=== PATIENT | male | born 1960 | race Caucasian/White ===

== ENCOUNTER → 2022-09-19 06:59 | Outpatient (CLI) | payer OTHER, SELFPAY ==
[2022-09-19 08:37] LABS: Hematocrit 54.4 % (41-53); Hemoglobin 17.9 g/dL (13.5-17.5); Mean Corpuscular Hemoglobin 31.4 PG (26-34); Mean Corpuscular Volume 95.2 fL (80-100); Platelet Count 248 X10^3/uL (150-400); Red Blood Cell Count 5.71 X10^6/uL (4.5-5.9); Red Cell Distribution Width 14.8 % (11.6-14.8); White Blood Cell Count 7.8 X10^3/uL (4.5-11.0)
[2022-09-19 08:59] LABS: Alanine Aminotransferase 38 IU/L (<50); Albumin 4.4 g/dL (3.5-5.0); Albumin Globulin Ratio 1.3 (1.0-2.8); Alkaline Phosphatase 73 U/L (38-126); Aspartate Aminotransferase 35 IU/L (17-59); BUN Creatinine Ratio 13.3 (6-22); Bilirubin Total 0.9 mg/dL (0.2-1.3); Blood Urea Nitrogen 12 mg/dL (9-20); Calcium 9.3 mg/dL (8.4-10.2); Carbon Dioxide 27 mmol/L (22-32); Chloride 103 mmol/L (98-107); Cholesterol 271 mg/dL (140-199); Estimated Glomerular Filt Rate > 60 mL/min (>60); Globulin 3.4 g/dL (1.7-4.1); Glucose 103 mg/dL (80-110); HDL Cholesterol 55 mg/dL (40-60); HEMOLYSIS < 15 (0-50); LDL Cholesterol Calculated 186 mg/dL (<100); Potassium 3.8 mmol/L (3.4-5.1); Sodium 142 mmol/L (137-145); Total Protein 7.8 g/dL (6.3-8.2); Triglycerides 151 mg/dL (35-150)
[2022-09-19 09:04] LABS: Hemoglobin A1C% w Est Avg Glu 5.9 % (4.0-6.0)
== END ==
PROVIDERS: PCP Family Medicine; Referring Provider Family Medicine; Visit Provider Family Medicine
DX: E66.9 Obesity, unspecified (principal); E78.2 Mixed hyperlipidemia; M17.2 Bilateral post-traumatic osteoarthritis of knee; R06.09 Other forms of dyspnea; R73.03 Prediabetes
CPT/HCPCS: 36415; 80053; 80061; 82306; 83036; 85027

== ENCOUNTER → 2022-10-05 18:36 | Outpatient (CLI) | payer OTHER, SELFPAY ==
--- NOTE | 2022-10-05 18:38 | DI.MRI.S_ITS ---
PROCEDURE: MR KNEE LT WO CON INDICATIONS: bilateral knee pain TECHNIQUE: Noncontrast sagittal PD fast spin echo and T2 fast spin echo with fat saturation, sagittal 3-D FLASH with fat saturation; coronal T1 spin echo and PD fast spin echo with fat saturation, and axial PD fast spin echo with fat saturation through the knee. COMPARISON: [facility], MR, MR KNEE RT WO CON, 10/05/2022, 19:08. [facility], RG, XR KNEES BILATERAL, 01/11/2006, 9:03. [facility], CR, XR KNEE LT 3V, 10/05/2022, 18:43. FINDINGS: Image quality: Excellent. Anterior Cruciate Ligament: Intact. Posterior Cruciate Ligament: Intact. Medial Collateral Ligament: Remote prior low-grade sprain of the proximal medial collateral ligament. Lateral Collateral Ligament: Remote prior low-grade sprain of the proximal lateral collateral ligament. Medial Meniscus: Complex degenerative tearing of the medial meniscus with extrusion of the meniscal body beyond the femorotibial joint line. Lateral Meniscus: Horizontal oblique tearing of the body and anterior horn of the lateral meniscus extending to the inner third of the tibial articular surface. A lobular parameniscal cyst is seen along the anterior nonarticular margin measuring 2.2 x 1.6 x 1.7 cm extending into the infrapatellar fat pad. Medial and Lateral Tendons: The semimembranosus tendon insertions and meniscocapsular junction appear intact. Visualized portions of the pes anserinus tendons appear normal. No abnormal bursal fluid. The long and short heads of the biceps femoris tendon appear intact. The popliteus tendon appears intact. No signs of posterolateral corner injury. Iliotibial band appears normal. Anterior Structures: The quadriceps and patellar tendons appear intact. No patellar subluxation. No femoral trochlear dysplasia or ventral trochlear prominence. No edema in the infrapatellar fat pad. Bones: No acute trabecular bone injury or fracture. Cystic changes within the posterior aspect of the medial tibial plateau are most likely related to chronic traction changes versus overlying cartilage loss or chronic erosions. Medial Femorotibial Cartilage: There is a large area of full-thickness cartilage loss throughout the weight-bearing portion of the medial femorotibial compartment with subchondral edema and subchondral cystic changes as well as marginal osteophyte formation. Lateral Femorotibial Cartilage: Deep cartilage fissuring is seen in the central to posterior aspect of the lateral femorotibial compartment. There is focal full-thickness cartilage loss and subchondral osteophyte formation at the anterior weight-bearing portion of the lateral femoral condyle. Marginal osteophytes and subchondral edema are present. Patellofemoral Cartilage: An area of full-thickness cartilage loss is seen at the lateral femoral trochlea and there is grade 2-3 cartilage irregularity at the lateral patellar facet as well as at the trochlear groove/medial femoral trochlea. Soft Tissues: Moderate to large joint effusion with moderate lipoma arborescens. A nonedematous intra-articular loose body is seen posterior to the medial tibial plateau measuring 19 mm. Multiple small hypointense intra-articular loose bodies are seen posterior to the intercondylar notch. Trace medial popliteal cyst. The musculature surrounding the knee is normal in bulk. IMPRESSION: 1. Tricompartmental osteoarthrosis including a large area of full-thickness cartilage loss in the medial femorotibial compartment with subchondral edema and subchondral cystic changes. Small areas of full-thickness cartilage loss are seen in the anterior and lateral compartments. Tricompartmental marginal osteophytes are noted. 2. Complex degenerative tearing and maceration of the medial meniscus with extrusion of the meniscal body. 3. Horizontal oblique tearing of the body and anterior horn of the lateral meniscus extending to the inner third of the tibial articular surface. Lobular parameniscal cyst anterior to the lateral meniscus measures up to 2.2 cm and extends into the infrapatellar fat pad. 4. Chronic low-grade sprains of the proximal medial and lateral collateral ligaments. 5. Moderate to large joint effusion with moderate lipoma arborescens. Multiple intra-articular loose bodies are present. Approved by: Uli Mclaughlin M.D. on 10/08/2022 at 8:40
--- NOTE | 2022-10-05 18:38 | DI.RAD.S_ITS ---
PROCEDURE: XR KNEE LT 3V INDICATIONS: bilateral knee pain TECHNIQUE: 3 views of the knee were acquired. COMPARISON: None. FINDINGS: Bones: No fractures or dislocations. There is moderate to severe joint space narrowing in the medial compartment with subchondral sclerosis and osteophytosis. Minimal lateral tilt of the patella demonstrated with mild narrowing in the patellofemoral compartment laterally. There is mild patellar osteophytosis. No suspicious bony lesions. Soft tissues: There is a small to moderate joint effusion. Chondrocalcinosis is demonstrated. IMPRESSION: 1. Osteoarthritic changes of the knee including moderate to severe degeneration in the medial compartment. 2. Small to moderate joint effusion. 3. Chondrocalcinosis is nonspecific but may reflect CPPD arthropathy. Dictated by: Henrik Garcia M.D. on 10/06/2022 at 2:42 Approved by: Henrik Garcia M.D. on 10/06/2022 at 2:44
--- NOTE | 2022-10-05 18:38 | DI.RAD.S_ITS ---
PROCEDURE: XR KNEE RT 3V INDICATIONS: bilateral knee pain TECHNIQUE: 3 views of the knee were acquired. COMPARISON: [facility], , XR KNEES BILATERAL, 01/11/2006, 9:03. FINDINGS: Bones: No fractures or dislocations. There is moderate to severe joint space narrowing in the medial compartment with subchondral sclerosis and osteophytosis. Mild lateral tilt and shift of the patella is demonstrated with mild to moderate narrowing in the patellofemoral compartment laterally. Patellar osteophytosis is also demonstrated. No suspicious bony lesions. Soft tissues: There is a moderate joint effusion. There is chondrocalcinosis. IMPRESSION: 1. Osteoarthritic changes of the knee including moderate to severe degeneration in the medial compartment. 2. Moderate joint effusion. 3. Nonspecific chondrocalcinosis may reflect CPPD arthropathy. Dictated by: Henrik Garcia M.D. on 10/06/2022 at 2:44 Approved by: Henrik Garcia M.D. on 10/06/2022 at 2:45
--- NOTE | 2022-10-05 18:38 | DI.MRI.S_ITS ---
PROCEDURE: MR KNEE RT WO CON INDICATIONS: bilateral knee pain TECHNIQUE: Noncontrast sagittal PD fast spin echo and T2 fast spin echo with fat saturation, sagittal 3-D FLASH with fat saturation; coronal T1 spin echo and PD fast spin echo with fat saturation, and axial PD fast spin echo with fat saturation through the knee. COMPARISON: [facility], RG, XR KNEES BILATERAL, 01/11/2006, 9:03. [facility], CR, XR KNEE RT 3V, 10/05/2022, 18:43. FINDINGS: Image quality: Excellent. Anterior Cruciate Ligament: The anterior cruciate ligament is not visualized and is most likely chronically torn. Posterior Cruciate Ligament: Intact. Medial Collateral Ligament: Mild thinning and intermediate signal intensity within the proximal medial collateral ligament is most likely secondary to a remote prior moderate grade sprain. Lateral Collateral Ligament: Intact. Medial Meniscus: There is diffuse degenerative tearing and maceration of the medial meniscus with scant residual meniscal tissue visualized. An anterior parameniscal cyst measures approximately 10 x 10 x 11 mm. Lateral Meniscus: There is complex tearing of the lateral meniscus including a vertical longitudinal component at the anterior horn and anterior root attachment as well as oblique tearing at the posterior horn. Findings most likely degenerative in nature. Medial and Lateral Tendons: The semimembranosus tendon insertions and meniscocapsular junction appear intact. Visualized portions of the pes anserinus tendons appear normal. No abnormal bursal fluid. The long and short heads of the biceps femoris tendon appear intact. The popliteus tendon appears intact. No signs of posterolateral corner injury. Iliotibial band appears normal. Anterior Structures: The quadriceps and patellar tendons appear intact. No patellar subluxation. No femoral trochlear dysplasia or ventral trochlear prominence. No edema in the infrapatellar fat pad. Bones: Prominent cystic changes are seen in the posterior portion of the central tibial plateau, which may be secondary to prominent chronic traction cystic changes versus intraosseous ganglion or chronic erosion. Cystic changes are also seen within the proximal fibula. Medial Femorotibial Cartilage: Diffuse full-thickness cartilage loss throughout the weight-bearing portion of the medial femorotibial compartment with subchondral edema, subchondral cystic changes, and remodeling of the articular surfaces. Bulky marginal osteophytes are present. Lateral Femorotibial Cartilage: There is deep cartilage fissuring in the central portion of the lateral tibial plateau. Full-thickness cartilage loss is seen at the posterior aspect of the lateral tibial plateau with subchondral osteophyte formation. There is focal high-grade cartilage loss at the adjacent posterior weight-bearing portion of the lateral femoral condyle. Moderately-sized marginal osteophytes are present. Patellofemoral Cartilage: Full-thickness cartilage loss is seen at the lateral patellar facet as well as the lateral femoral trochlea. There is full-thickness cartilage loss and subchondral osteophyte formation at the trochlear groove and medial femoral trochlea. Marginal osteophytes are present. Soft Tissues: There is a large joint effusion with moderate lipoma arborescens. A nonedematous ossified loose body is seen anterior to the lateral tibial plateau measuring 12 x 8 x 14 mm. Additional 14 mm ossified nonedematous loose body is seen posterior to the intercondylar notch. Additional smaller loose bodies are present about the knee. Trace medial popliteal cyst. The musculature surrounding the knee is normal in bulk. IMPRESSION: 1. Severe tricompartmental osteoarthrosis including large areas of full-thickness cartilage loss in the medial and anterior compartments and focal areas of full-thickness cartilage loss in the lateral compartment with tricompartmental marginal osteophytes. 2. Severe chronic degenerative tearing and maceration of the medial meniscus. 3. Complex degenerative tearing of the lateral meniscus. 4. Chronic complete tearing of the anterior cruciate ligament. 5. Remote prior grade 2 sprain of the proximal medial collateral ligament. 6. Large joint effusion with moderate lipoma arborescens and multiple ossified intra-articular loose bodies. Approved by: Uli Mclaughlin M.D. on 10/08/2022 at 8:24
== END ==
PROVIDERS: Family Provider Family Medicine; PCP Family Medicine; Referring Provider Family Medicine; Visit Provider Family Medicine
DX: M17.2 Bilateral post-traumatic osteoarthritis of knee (principal); M23.232 Derangement of other medial meniscus due to old tear or injury, left knee; M23.231 Derangement of other medial meniscus due to old tear or injury, right knee; M23.261 Derangement of other lateral meniscus due to old tear or injury, right knee; M23.242 Derangement of anterior horn of lateral meniscus due to old tear or injury, left knee; S83.511A Sprain of anterior cruciate ligament of right knee, initial encounter; S83.411A Sprain of medial collateral ligament of right knee, initial encounter; S83.412A Sprain of medial collateral ligament of left knee, initial encounter; S83.422A Sprain of lateral collateral ligament of left knee, initial encounter; M25.462 Effusion, left knee; M25.461 Effusion, right knee; M11.262 Other chondrocalcinosis, left knee; M11.261 Other chondrocalcinosis, right knee
CPT/HCPCS: 73562; 73721

== ENCOUNTER → 2022-10-18 14:42 | Outpatient (CLI) | payer OTHER, SELFPAY ==
--- NOTE | 2022-10-18 14:43 | DI.US.S_ITS ---
PROCEDURE: US SCROTUM INDICATIONS: LUMP IN RIGHT TESTICLE TECHNIQUE: Real-time scanning was performed of the scrotum and testicles, with image documentation. Color and pulse Doppler interrogation was performed of both testicles. COMPARISON: None. FINDINGS: Right: Testicle is normal in size at 5.2 x 2.5 x 4.4 cm, and homogenous in echotexture. There is a moderate to large size right hydrocele with numerous punctate echogenic reflectors and several thin septations. A unilocular 1.6 cm right epididymal head cyst is noted. Epididymis is otherwise normal. No varicocele. Overlying scrotal skin is normal in thickness. Left: Testicle is normal in size at 5.4 x 2.9 x 4.0 cm, and homogeneous in echotexture. Small to moderate left hydrocele with trace debris. 1.0 cm epididymal head cyst and a few other tiny epididymal cysts are present. Normal vascularity. Overlying scrotal skin is normal in thickness. Doppler: Color and pulse Doppler demonstrate normal and symmetric arterial flow in both testicles. IMPRESSION: 1. Prominent right-sided, debris containing hydrocele versus spermatocele. Several septations may contribute to feeling of nodularity. 2. Bilateral epididymal head cysts. 3. Normal appearance to both testicles. Dictated by: Jacey Gomez M.D. on 10/19/2022 at 11:15 Approved by: Jacey Gomez M.D. on 10/19/2022 at 11:23
== END ==
PROVIDERS: Family Provider Family Medicine; PCP Family Medicine; Referring Provider Family Medicine; Visit Provider Family Medicine
DX: N50.89 Other specified disorders of the male genital organs (principal); N50.3 Cyst of epididymis
CPT/HCPCS: 76870

== ENCOUNTER 2022-10-23 12:55 | Day surgery (SDC) | payer OTHER, SELFPAY ==
--- NOTE | 2022-10-23 | PATH_ITS ---
[facility] Accession Number: [id number] No. of containers..01 Tissue . 01 Material submitted: . sigmoid colon - SIGMOID 30CM POLYP . 01 Diagnosis: Sigmoid Colon Polyp at 30 cm: Tubulovillous adenoma. Negative for high-grade dysplasia or malignancy. MRV 10/29/2022 1225 Local . 01 Electronically signed: . Jb Yang MD, PhD, Pathologist NPI- [id number] . 01 Gross description: . SIGMOID 30CM POLYP: Received in formalin is 1 fragment of duarte soft tissue measuring 0.9 x 0.9 x 0.9 cm. Specimen is sectioned and submitted in its entirety in 1 cassette. /KODAK 10/24/2022 1907 Local . 01 Pathologist provided ICD-10: D12.5 . 01 CPT . 404020 Specimen Comment: A courtesy copy of this report has been sent to [phone] Performed at: 01 [facility] [address] [place] [address] [address] [facility], [place], [place] [id number] MD Henrik Rothman MD Phone: [phone]
[2022-10-23 13:50] VITALS: BP 113/72; PULSE 82; RESP 16; TEMP 36.1; O2SAT 95; BMI 30.5
[2022-10-23] MEDS: LACTATED RINGERS 1,000 ML 200 ML IV (14:05)
--- NOTE | 2022-10-23 15:14 | PM.HP.1 ---
History of Present Illness History of Present Illness Date Patient Seen: 10/23/22 Time Patient Seen: 15:14 Chief complaint: SDC Narrative: The patient presents for colorectal screening. They have never had any previous examination for such. No personal or family history of colon cancer. On further history denies any recent gastrointestinal symptoms. No nausea, vomiting, abdominal pain, loss of appetite, unexplained weight loss, change in bowel habits, or blood per rectum. Patient History Medical History (Updated 10/22/22 @ 09:40 by Ced Hernadez DO) Cyst of epididymis determined by ultrasound Diaphoresis Elevated hemoglobin Flushing reaction Hydrocele in adult Surgical History (Updated 01/07/18 @ 05:20 by SANTOS Calderon) Status post knee surgery Family & Social History Family History (Updated 01/26/16 @ 00:00 by Nicole Up DO) Father Cancer Hypertension High cholesterol Stroke Grandmother Cancer Mother Age: 85 Hypertension High cholesterol Stroke Grandfather Stroke Social History: household members spouse Tobacco & Substance use: Smoking Status Former smoker alcohol intake current alcohol intake frequency a few times a week Substance Use Type marijuana Meds Home Medications and Allergies Home Medications Medication Instructions Recorded Confirmed Type Instaflex 1 tab PO 3XD 09/18/22 10/23/22 History aspirin 81 mg tablet,delayed 81 mg PO DAILY 09/18/22 10/23/22 History release (Christina Low Dose Aspirin) lisinopril 20 mg tablet 20 mg PO DAILY #90 tabs 09/18/22 10/23/22 Rx turmeric 2 tab-cap PO DAILY 09/18/22 10/23/22 History atorvastatin 40 mg tablet 40 mg PO BEDTIME #90 tabs 10/01/22 10/23/22 Rx Allergies Allergy/AdvReac Type Severity Reaction Status Date / Time No Known Drug Allergies Allergy Verified 10/23/22 14:01 Exam Vital Signs (past 8 hours): - 10/23/22 13:50 Temperature 97.0 F L Pulse Rate 82 Respiratory Rate 16 Blood Pressure 113/72 Pulse Oximetry 95 Oxygen Delivery Method Room Air Oxygen Delivery Method Room Air Narrative Exam Narrative: General adult male alert oriented no acute distress Assessment & Plan Assessment & Plan narrative: The patient requires colorectal screening and colonoscopy is recommended. Technical details were discussed. Risks, benefits, alternatives explained. Risks including but not limited to myocardial infarction, aspiration, bleeding, pain, missed lesion, incomplete examination, need for further radiographic studies, colonic perforation, and need for major abdominal surgery were discussed. All questions were answered to their satisfaction, and they are in agreement with this plan. Time Spent With Patient Critical Care time: I spent a total of [] minutes of critical care time on this patient's care today; this time is exclusive of procedural time.
--- NOTE | 2022-10-23 15:15 | P.OP.COLON_ITS ---
Operative Date/Time/Diagnoses Date of procedure: 10/23/22 Time of procedure: 15:15 Pre-op diagnosis: Colorectal screening Procedure & Clinicians Study performed: Colonoscopy Same procedure as scheduled: Yes Indications: Colorectal screening Surgeon: Roland Corrigan Procedure Notes Procedure in detail: The history and physical was performed/updated and the patient is ASA class is 2. The procedure was discussed in detail with the patient. Potential risks complications including infection, bleeding, missed diagnosis, perforation, need for surgery, and were explained. Their questions were answered and informed consent was obtained. Patient was brought to the procedure room and placed standard monitoring equipment. The patient's vital signs were monitored continuously throughout the entire procedure. Prior to starting time-out was performed. The patient was placed in the left lateral recumbent position. Procedural sedation was administered by anesthesia. Examination began with a thorough inspection of the perianal area there was no evidence of fissures, fistulae, external hemorrhoids or cutaneous malignancy. The colonoscopy scope was then placed into the anal canal and was advanced to the cecum, which was identified by the ileocecal valv e, the appendiceal orifice and the confluence of the taenia. The scope was then slowly withdrawn examining colon thoroughly in all directions, irrigating it of any residual stool. Within the sigmoid colon at 30 cm from the anal verge there was a 1 cm pedunculated polyp with a broad base. 3 mL of Annalisa ink was used to raise the polyp and marked boogie was placed below the level of the polyp. The p olyp was then removed with snare. Initially cold snare was used but it was not adequate to cut through the stocking was therefore changed to cautery. There were no other significant lesions within the colon. The patient tolerated the procedure well. They will be discharged once criteria are met. The prep was of good/excellent quality. The withdrawl time was 10minutes. Specimen(s): other (Sigmoid polyp) Complications: none Impression: Colonic polyp Post-procedure Recommendations: High fiber diet Plan for aftercare: Follow-up is dependent on pathology findings. Please hold aspirin for 3 days. Disposition: same day surgery
[2022-10-23 15:50] VITALS: BP 98/69; PULSE 87; RESP 14; TEMP 37; O2SAT 91
[2022-10-23 15:55] VITALS: BP 110/79; PULSE 92; RESP 16; TEMP 37; O2SAT 92
[2022-10-23 16:02] VITALS: BP 117/87; PULSE 76; RESP 16; TEMP 36.9; O2SAT 96
== END 2022-10-23 16:15 | disposition home or self-care (01) ==
PROVIDERS: Family Provider Family Medicine; PCP Family Medicine; Referring Provider Surgery; Visit Provider Surgery
PROC: 0DJD8ZZ Inspection of Lower Intestinal Tract, Via Natural or Artificial Opening Endoscopic (ICD-10-PCS; CPT 45378; principal; 2022-10-23 14:00)
DX: Z12.11 Encounter for screening for malignant neoplasm of colon (principal); D12.5 Benign neoplasm of sigmoid colon
CPT/HCPCS: 45385; 45381; J2704; J3010

== ENCOUNTER → 2022-11-29 09:36 | Outpatient (CLI) | payer OTHER, SELFPAY ==
[2022-11-29 11:14] LABS: Appearance Urine UA CLEAR; Bilirubin Urine UA NEGATIVE (NEGATIVE); Color Urine UA YELLOW; Glucose Urine UA NEGATIVE (Negative); Ketones Urine UA NEGATIVE (NEGATIVE); Leukocyte Esterase Urine UA NEGATIVE (NEGATIVE); Nitrite Urine UA NEGATIVE (Negative); Occult Blood Urine UA 2+ (Negative); Protein Urine UA NEGATIVE (Negative); Specific Gravity Urine UA 1.025 (1.000-1.035); Urobilinogen Urine UA 0.2 E.U./dL (0.2); pH Urine UA 5.5 (4.5-8.0)
[2022-11-29 11:19] LABS: Bacteria Urine None Seen; Culture Indicated Urine Cult Not Indicated; RBC Urine 1-5/HPF (0-5/HPF); WBC Urine None Seen (0-5/HPF)
[2022-11-29 11:20] LABS: Add Manual Diff / Slide Review NO; Basophils Absolute Auto 0 /uL (0-100); Basophils Percent Auto 0.5 % (0-2); Eosinophils Absolute Auto 300 /uL (0-450); Eosinophils Percent Auto 3.4 % (2-4); Hematocrit 48.1 % (41-53); Hemoglobin 16.5 g/dL (13.5-17.5); Lymphocytes Absolute Auto 2800 /uL (1100-4500); Lymphocytes Percent Auto 31.7 % (25-40); Mean Corpuscular HGB Conc 34.2 % (30-36); Mean Corpuscular Hemoglobin 31.7 PG (26-34); Mean Corpuscular Volume 92.5 fL (80-100); Monocytes Absolute Auto 800 /uL (0-900); Monocytes Percent Auto 8.9 % (3-14); Neutrophils Absolute Auto 5000 /uL (1500-7000); Neutrophils Percent Auto 55.5 % (50-75); Platelet Count 261 X10^3/uL (150-400); Red Cell Distribution Width 13.7 % (11.6-14.8); White Blood Cell Count 8.9 X10^3/uL (4.5-11.0)
[2022-11-29 11:29] LABS: Hemoglobin A1C% w Est Avg Glu 6.3 % (4.0-6.0)
[2022-11-29 12:00] LABS: BUN Creatinine Ratio 14.4 (6-22); Blood Urea Nitrogen 14 mg/dL (9-20); Calcium 9.8 mg/dL (8.4-10.2); Carbon Dioxide 27 mmol/L (22-32); Chloride 102 mmol/L (98-107); Estimated Glomerular Filt Rate > 60 mL/min (>60); Glucose 101 mg/dL (80-110); HEMOLYSIS < 15 (0-50); Potassium 4.3 mmol/L (3.4-5.1); Sodium 138 mmol/L (137-145)
== END ==
PROVIDERS: Family Provider Family Medicine; PCP Family Medicine; Referring Provider Orthopaedic Surgery; Visit Provider Orthopaedic Surgery
DX: Z01.818 Encounter for other preprocedural examination (principal); Z01.812 Encounter for preprocedural laboratory examination; R73.9 Hyperglycemia, unspecified; N39.0 Urinary tract infection, site not specified; N43.3 Hydrocele, unspecified; R31.21 Asymptomatic microscopic hematuria; N50.3 Cyst of epididymis; Z68.32 Body mass index [BMI] 32.0-32.9, adult; Z87.891 Personal history of nicotine dependence
CPT/HCPCS: 36415; 80048; 81001; 81002; 83036; 85025; 93005; 93010

== ENCOUNTER → 2022-12-07 11:04 | Outpatient (CLI) | payer OTHER, SELFPAY ==
--- NOTE | 2022-12-07 11:04 | DI.CT.S_ITS ---
PROCEDURE: CT ABDOMEN PELVIS WO/W CON INDICATIONS: Asymptomatic microscopic hematuria TECHNIQUE: Optional 5 mm thick noncontrast images acquired from the diaphragm to the symphysis pubis. After the administration of intravenous contrast, 5 mm thick images acquired from the diaphragm to the symphysis pubis after a 10-minute delay. 2 mm thick coronal and sagittal reformats were then performed of the kidneys and ureters. For radiation dose reduction, the following was used: automated exposure control, adjustment of mA and/or kV according to patient size. COMPARISON: None. FINDINGS: Image quality: Good Lower chest: Basal scarring/atelectasis. No hiatal hernia. Normal heart size. Solid organs: Possible hepatic steatosis. Gallbladder is under distended and unremarkable. No pathologic dilation of biliary tree or pancreatic duct. No splenomegaly. There is a splenic cyst. No adrenal nodules. No hydronephrosis. The Bosniak 1 and 2 renal lesions are present, for which no dedicated followup is necessary per 2019 proposed guidelines. No obstructing calcified stone. No ureter filling defect. Bladder is under distended, limiting evaluation. Vessels and lymph nodes: No abdominal aortic aneurysm. No pathologic adenopathy by size criteria. Bowel and peritoneum: No bowel obstruction. No abscess or ascites. Colonic diverticula. Suggestion of chronic wall thickening in the sigmoid colon. Body wall: Unremarkable Pelvis: Prostate is not well evaluated on this study. Small fat containing left inguinal hernia. Bones: There are degenerative changes. No acute or suspicious osseous finding. IMPRESSION: No upper tract disease identified to explain hematuria. Any lower tract disease could be better evaluated with cystoscopy. Mildly heterogeneous appearance of the prostate, not well evaluated on CT. Consider correlation with PSA and possible MRI if abnormal. Other incidental and nonacute findings as above. Dictated by: Mazin Richmond M.D. on 12/07/2022 at 13:12 Approved by: Mazin Richmond M.D. on 12/07/2022 at 13:17
== END ==
PROVIDERS: Family Provider Family Medicine; PCP Family Medicine; Referring Provider Urology; Visit Provider Urology
DX: R31.21 Asymptomatic microscopic hematuria (principal); K57.90 Diverticulosis of intestine, part unspecified, without perforation or abscess without bleeding; K40.90 Unilateral inguinal hernia, without obstruction or gangrene, not specified as recurrent; D73.4 Cyst of spleen
CPT/HCPCS: 74178; Q9967

== ENCOUNTER → 2023-02-07 07:02 | Outpatient (CLI) | payer OTHER, SELFPAY ==
[2023-02-07 08:44] LABS: BUN Creatinine Ratio 18.7 (6-22); Blood Urea Nitrogen 17 mg/dL (9-20); Calcium 9.4 mg/dL (8.4-10.2); Carbon Dioxide 26 mmol/L (22-32); Chloride 102 mmol/L (98-107); Estimated Glomerular Filt Rate > 60 mL/min (>60); Glucose 110 mg/dL (80-110); HEMOLYSIS 25 (0-50); Sodium 136 mmol/L (137-145)
[2023-02-07 09:12] LABS: Prostate Specific Antigen Scrn 1.44 ng/mL (0.1-4.0)
[2023-02-07 16:30] LABS: HIV 1 & 2 Ab/Ag 4th Gen Combo NEGATIVE (NEGATIVE); Hep C Virus Ab w/Reflex Quant NEGATIVE s/c (NEGATIVE)
[2023-02-08 06:44] LABS: Labcorp Hemoglobin (Hb) A1c 5.6 % (4.8-5.6)
== END ==
PROVIDERS: Family Provider Family Medicine; PCP Family Medicine; Referring Provider Family Medicine; Visit Provider Family Medicine
DX: E78.2 Mixed hyperlipidemia (principal); Z11.59 Encounter for screening for other viral diseases; Z11.4 Encounter for screening for human immunodeficiency virus [HIV]; E11.65 Type 2 diabetes mellitus with hyperglycemia; M17.2 Bilateral post-traumatic osteoarthritis of knee; E66.9 Obesity, unspecified; R06.09 Other forms of dyspnea
CPT/HCPCS: 36415; 80048; 83036; 86803; 87389; G0103

== ENCOUNTER 2023-02-11 06:44 | Day surgery (SDC) | payer OTHER, SELFPAY ==
[2023-02-06 10:16] VITALS: BMI 31.4
--- NOTE | 2023-02-11 | PATH_ITS ---
[facility] Accession Number: [id number] No. of containers..01 Tissue . 01 Material submitted: . SPERMATOCELE - SPERMATOCELE . 01 Diagnosis: Spermatocele, Excision: Consistent with spermatocele. [facility] 02/14/2023 1134 Local . 01 Electronically signed: . Randa Bear MD, Pathologist NPI- [id number] . 01 Gross description: . The specimen is received in formalin labeled with the patient's name, , and spermatocele consists of a thin, smooth-walled cystic structure measuring 4.7 x 2.5 x 1.1 cm with a pale duarte wrinkled external surface. A white suture is identified with no designation per the requisition, and the area adjacent to the suture is inked green while the remaining external surface is inked blue. Sectioning reveals the cyst to contain clear serous fluid. No excrescences are identified. The specimen is submitted entirely in cassettes A1-A2. ([id number]) /MRV 02/12/2023 1418 Local . 01 Pathologist provided ICD-10: R31.21, N50.3, N43.3 . 01 CPT . 422080 Specimen Comment: A courtesy copy of this report has been sent to [phone] Performed at: 01 [facility] [address] [place] [address] [address] [facility], [place], [place] [id number] MD Henrik Rothman MD Phone: [phone]
[2023-02-11 07:00] VITALS: BMI 30.9
[2023-02-11 07:04] VITALS: BP 125/80; PULSE 75; RESP 18; TEMP 36.1; O2SAT 97
[2023-02-11] MEDS: LACTATED RINGERS 1,000 ML 21 ML IV (07:11)
--- NOTE | 2023-02-11 07:39 | PM.PREOP ---
Pre-operative Note COVID-19 COVID-19 status: Not tested Criteria for continued procedure: Non-surgical alternatives not available or appropriate per current SOC Interval Note History & Physical reviewed/Exam performed by Physician: Yes Changes to H&P: No
[2023-02-11] MEDS: CEFAZOLIN 2 GM/100 ML PREMIX 100 ML IV (07:55)
--- NOTE | 2023-02-11 08:08 | SUR.OPER ---
Supine on padded OR bed, head on pillow, arms secured on padded arm boards at <90 degrees abduction, legs uncrossed, safety belt at thigh, tape over blanket over lower legs.
[2023-02-11] MEDS: BUPIVACAINE 0.25% (PF) VIAL 30 ML INJ (08:13)
[2023-02-11 09:03] VITALS: BP 135/91; PULSE 86; RESP 10; TEMP 36.3; O2SAT 96
--- NOTE | 2023-02-11 09:06 | PM.OP.1 ---
Procedure & Clinicians Procedure: Right spermatocelectomy with flexible cystoscopy and drainage of hydrocele Same procedure as scheduled: Yes Indications: This very pleasant gentleman presented with right hemiscrotal enlargement and was found to have perhaps a small hydrocele in a larger spermatocele. He also had asymptomatic microscopic hematuria and tobacco exposure. He presents for the above procedures Surgeon: José Miguel Jackson Click Yes if Unassisted: Yes Anesthesia Type: General Operative Notes Findings: At cystoscopy urethral meatus was normal. Urethra is normal along its length with normal mucosa. The sphincter as well coapted. The prostatic fossa showed moderate obstructive character with normal mucosa. Ureteral orifices in normal position with clear efflux. And the bladder mucosa was in a word normal. There were no mucosal lesions, papillary lesions, velvety or erythematous lesions. There was no evidence of fistula stone or other abnormality at flexible cystoscopy. At spermatocelectomy there was a small amount of yellow food and hydrocele sac which was drained. It was fairly insignificant the spermatocele had clear slightly milky fluid and there were no other abnormalities noted. Closure Type: primary Specimen(s): other (Spermatocele sac) Estimated Blood Loss (mL): 0 Blood products transfused: none Procedure in detail: Procedure in detail after informed consent was obtained, the patient was identified and brought to the operating room worries placed in a supine position of the table and anesthesia was induced and maintained. During an adequate level of anesthesia the patient was shaved, prepped, draped, prepared for flexible cystoscopy and right spermatocelectomy. Ensuring an adequate level of anesthesia after prepping, draping, preparation and time out flexible cystoscope was passed through the urethral prostate and into the bladder where cystoscopy was performed including a retroflex maneuver. The scope was then removed and a red rubber catheter was passed into the bladder and the bladder was drained. Patient then went on to spermatocelectomy right side. Marking the midline on the right side a transverse incision was made through the scrotal skin and the dissection carried down through the layers of the dartos. The testicle small hydrocele and spermatocele were delivered. A small opening was made with electrocautery and bluntly into the hydrocele sac and it was drained of its yellow fluid. The investing layers over the spermatocele were then dissected away. And the spermatocele was entered in the fluid mostly drained. It was a clear with the slightly milky color. The sac of the spermatocele was then dissected off of the investing tissues down to the neck and junction with the epididymis. This was then ligated with a 2-0 Vicryl and the sac sharply remove. The investing tissues were then reapproximated with a running 2-0 chromic. This was after ensuring hemostasis the opening in the hydrocele sac was then reapproximated with a running 2-0 chromic. Cord block was then performed with 0.25% plain Marcaine in the testicle returned to the scrotum. The dartos was reapproximated with a running 2-0 Vicryl. Skin edges were reapproximated with a interrupted vertical mattress of 2-0 chromic. The skin was then infiltrated with 0.25% plain Marcaine. Dressings were applied, the patient was awakened and taken to the postanesthesia care unit having tolerated the procedure well. There were no complications. After an appropriate recovery the patient will be discharge to home. The spermatocele sac was forwarded to pathology for pathologic examination. Complications: none Post-operative Condition: stable Disposition: PACU Plan for aftercare: Patient to follow up my office in approximately 10-14 days.
[2023-02-11 09:08] VITALS: BP 127/79; PULSE 75; RESP 12; O2SAT 94
[2023-02-11 09:14] VITALS: BP 122/86; PULSE 77; RESP 12; O2SAT 96
[2023-02-11 09:18] VITALS: BP 124/79; PULSE 62; RESP 17; TEMP 36.4; O2SAT 97
[2023-02-11 09:25] VITALS: BP 122/73; PULSE 72; RESP 17; O2SAT 98
--- NOTE | 2023-02-11 09:35 | SUR.PHASEII ---
DC home with family. Volunteer took out in . No pain, no N/V, all belongings with patient
== END 2023-02-11 09:39 | disposition home or self-care (01) ==
PROVIDERS: Family Provider Family Medicine; PCP Family Medicine; Referring Provider Urology; Visit Provider Urology
PROC: 0TJB8ZZ Inspection of Bladder, Via Natural or Artificial Opening Endoscopic (ICD-10-PCS; CPT 52000; principal; 2023-02-11 07:45)
PROC: (CPT 54840; 2023-02-11 07:45)
DX: N43.41 Spermatocele of epididymis, single (principal); N43.3 Hydrocele, unspecified
CPT/HCPCS: 54840; J0690; J1100; J1885; J2250; J2405; J2704; J3010

== ENCOUNTER → 2023-05-15 11:46 | Outpatient (CLI) | payer OTHER, SELFPAY ==
[2023-05-15 12:41] LABS: Add Manual Diff / Slide Review NO; Basophils Absolute Auto 100 /uL (0-100); Basophils Percent Auto 0.6 % (0-2); Eosinophils Absolute Auto 300 /uL (0-450); Eosinophils Percent Auto 2.8 % (2-4); Hematocrit 45.6 % (41-53); Hemoglobin 15.3 g/dL (13.5-17.5); Lymphocytes Absolute Auto 2900 /uL (1100-4500); Lymphocytes Percent Auto 31.1 % (25-40); Mean Corpuscular HGB Conc 33.6 % (30-36); Mean Corpuscular Hemoglobin 31.1 PG (26-34); Mean Corpuscular Volume 92.5 fL (80-100); Monocytes Absolute Auto 800 /uL (0-900); Monocytes Percent Auto 8.1 % (3-14); Neutrophils Absolute Auto 5500 /uL (1500-7000); Neutrophils Percent Auto 57.4 % (50-75); Platelet Count 266 X10^3/uL (150-400); Red Blood Cell Count 4.93 X10^6/uL (4.5-5.9); White Blood Cell Count 9.5 X10^3/uL (4.5-11.0)
[2023-05-15 13:10] LABS: BUN Creatinine Ratio 15.1 (6-22); Blood Urea Nitrogen 16 mg/dL (9-20); Carbon Dioxide 25 mmol/L (22-32); Chloride 102 mmol/L (98-107); Estimated Glomerular Filt Rate > 60 mL/min (>60); Glucose 94 mg/dL (80-110); HEMOLYSIS < 15 (0-50); Potassium 4.6 mmol/L (3.4-5.1); Sodium 136 mmol/L (137-145)
== END ==
PROVIDERS: Family Provider Family Medicine; PCP Family Medicine; Referring Provider Orthopaedic Surgery; Visit Provider Orthopaedic Surgery
DX: Z01.812 Encounter for preprocedural laboratory examination (principal)
CPT/HCPCS: 36415; 80048; 85025

== ENCOUNTER → 2023-10-24 07:19 | Outpatient (CLI) | payer OTHER, SELFPAY ==
[2023-10-24 08:15] LABS: Cholesterol 140 mg/dL (140-199); HDL Cholesterol 53 mg/dL (40-60); LDL Cholesterol Calculated 62 mg/dL (<100); Triglycerides 126 mg/dL (35-150)
== END ==
PROVIDERS: Family Provider Family Medicine; PCP Family Medicine; Referring Provider Family Medicine; Visit Provider Family Medicine
DX: E78.2 Mixed hyperlipidemia (principal)
CPT/HCPCS: 36415; 80061

== ENCOUNTER → 2024-06-29 09:31 | Outpatient (CLI) | payer OTHER, SELFPAY ==
[2024-06-29 10:24] LABS: Add Manual Diff / Slide Review NO; Basophils Absolute Auto 100 /uL (0-100); Eosinophils Absolute Auto 200 /uL (0-450); Eosinophils Percent Auto 2.3 % (2-4); Hematocrit 43.4 % (41-53); Hemoglobin 14.6 g/dL (13.5-17.5); Lymphocytes Absolute Auto 3500 /uL (1100-4500); Lymphocytes Percent Auto 33.3 % (25-40); Mean Corpuscular HGB Conc 33.7 % (30-36); Mean Corpuscular Hemoglobin 30.5 PG (26-34); Mean Corpuscular Volume 90.3 fL (80-100); Monocytes Absolute Auto 800 /uL (0-900); Monocytes Percent Auto 7.6 % (3-14); Neutrophils Absolute Auto 5800 /uL (1500-7000); Neutrophils Percent Auto 55.8 % (50-75); Platelet Count 430 X10^3/uL (150-400); Red Cell Distribution Width 13.8 % (11.6-14.8); White Blood Cell Count 10.5 X10^3/uL (4.5-11.0)
[2024-06-29 10:27] LABS: Hemoglobin A1C% w Est Avg Glu 5.8 % (4.0-6.0)
[2024-06-29 10:42] LABS: Alanine Aminotransferase 13 IU/L (<50); Albumin 4.4 g/dL (3.5-5.0); Albumin Globulin Ratio 1.4 (1.0-2.8); Alkaline Phosphatase 84 U/L (38-126); Aspartate Aminotransferase 19 IU/L (17-59); BUN Creatinine Ratio 16.3 (6-22); Bilirubin Total 0.4 mg/dL (0.2-1.3); Blood Urea Nitrogen 17 mg/dL (9-20); Calcium 10.1 mg/dL (8.4-10.2); Carbon Dioxide 25 mmol/L (22-32); Chloride 106 mmol/L (98-107); Cholesterol 167 mg/dL (140-199); Estimated Glomerular Filt Rate > 60 mL/min (>60); Globulin 3.1 g/dL (1.7-4.1); Glucose 92 mg/dL (80-110); HDL Cholesterol 52 mg/dL (40-60); HEMOLYSIS < 15 (0-50); LDL Cholesterol Calculated 86 mg/dL (<100); Sodium 136 mmol/L (137-145); Total Protein 7.5 g/dL (6.3-8.2); Triglycerides 143 mg/dL (35-150)
[2024-06-29 10:47] LABS: High Sensitivity CRP - Cardiac 5.1 mg/L (1.0-3.0)
[2024-06-29 12:50] LABS: Microalbumin Urine Random 1.7 mg/dL (0-1.6)
== END ==
PROVIDERS: PCP Family Medicine; Referring Provider Family Medicine; Visit Provider Family Medicine
DX: E78.2 Mixed hyperlipidemia (principal); R73.03 Prediabetes; I10 Essential (primary) hypertension; M79.89 Other specified soft tissue disorders
CPT/HCPCS: 36415; 80053; 80061; 82043; 82570; 83036; 85025; 86038; 86140; 86200

== ENCOUNTER → 2024-11-13 08:28 | Outpatient (CLI) | payer OTHER, SELFPAY ==
[2024-11-13 10:38] LABS: Prostate Specific Antigen Scrn 1.53 ng/mL (0.1-4.0)
== END ==
PROVIDERS: PCP Family Medicine; Referring Provider Urology; Visit Provider Urology
DX: Z12.5 Encounter for screening for malignant neoplasm of prostate (principal)
CPT/HCPCS: 36415; G0103